=== PATIENT | female | born 1985 | race Hispanic/Latino ===

== ENCOUNTER 2018-06-09 12:16 | Emergency (ER) | payer BC ==
[2018-06-09 12:21] VITALS: BMI 20.9
[2018-06-09 12:27] VITALS: O2SAT 100
--- NOTE | 2018-06-09 12:31 | ED PDOC ---
Arrival/HPI - General Chief Complaint: Trauma Time Seen by Provider: 06/09/18 12:27 Historian: Patient - History of Present Illness Narrative History of Present Illness (Text): 06/09/18 12:40 32 year old female whose PMH includes, asthma and anxiety, who presents to the emergency department complaining of injuring her right elbow and right side of hip s/p mechanical fall prior to arrival while working. 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 Patient was able to ambulate and bear weight s/p fall, but is mainly concerned for her right elbow since it is worse with movement. Patient denies head trauma , loss of consciousness, nausea, vomiting, diarrhea, fever, shortness of breath , chest pain, or other bodily injuries. Time/Duration: 1 hour Symptom Onset: Sudden Symptom Course: Unchanged Context: Tripped Past Medical History - Provider Review Nursing Documentation Reviewed: Yes - Infectious Disease Hx of Infectious Diseases: None - Tetanus Immunization Tetanus Immunization: Unknown - Pulmonary Hx Respiratory Disorders: Yes Hx Asthma: Yes - Musculoskeletal/Rheumatological Hx Falls: No - Psychiatric Hx Anxiety: Yes Hx Substance Use: No - Surgical History Hx Tonsillectomy: Yes Other/Comment: sinus sx - Anesthesia Hx Anesthesia: Yes Hx Anesthesia Reactions: No Hx Malignant Hyperthermia: No - Suicidal Assessment Feels Threatened In Home Enviroment: No Family/Social History - Physician Review Nursing Documentation Reviewed: Yes Family/Social History: Unknown Family HX Smoking Status: Never Smoked Hx Alcohol Use: No Hx Substance Use: No Allergies/Home Meds Allergies/Adverse Reactions: Allergies cefaclor Allergy (Verified 06/09/18 12:21) RASH Penicillins Allergy (Verified 06/09/18 12:21) RASH Home Medications: Home Meds Medication Instructions Recorded Confirmed Albuterol HFA [Ventolin HFA 90 1 puff IH QID PRN 06/09/18 06/09/18 mcg/actuation (8 g)] Escitalopram [Lexapro] 1 tab PO HS 06/09/18 06/09/18 Norethindrone-E.estradiol-Iron 1 tab PO DAILY 06/09/18 06/09/18 [Loestrin Fe 1.5-30 Tablet] Review of Systems - Physician Review All systems were reviewed & negative as marked: Yes - Review of Systems Constitutional: absent: Fevers Cardiovascular: absent: Chest Pain Musculoskeletal: Other (right elbow pain and abrasion; right sided hip pain ) Physical Exam - Physical Exam Narrative Physical Exam (Text): 06/09/18 Constitutional: No acute distress. Head: Normocephalic. Atraumatic. Eyes: PERRL. ENT: Moist mucous membranes. Neck: Supple. No midline tenderness Cardiovascular: Regular rate. Chest: No tenderness. Respiratory: Clear to auscultation bilaterally. GI: Soft. Nontender. Nondistended. Back: No CVA tenderness. No midline tenderness. No paraspinal tenderness. Musculoskeletal: (+) FROM x4 excluding right elbow. (+) abrasion to the olecranon. (+) tenderness to the ulnar aspect of elbow. No hip tenderness. FROM of R hip. Skin: As above. Neurologic: Alert, no focal deficit. Vital Signs Reviewed: Yes Vital Signs Temp Pulse Resp BP Pulse Ox 06/09/18 14:44 98.3 F 06/09/18 14:41 74 17 135/80 100 06/09/18 12:26 98.2 F 78 18 141/83 100 Temperature: Afebrile Blood Pressure: Normal Pulse: Regular Respiratory Rate: Normal Appearance: Positive for: Well-Appearing, Non-Toxic, Comfortable Pain Distress: None Mental Status: Positive for: Alert and Oriented X 3 Medical Decision Making ED Course and Treatment: 06/09/18 Impression: 32 year old female with FROM x4 excluding right elbow with abrasion to the olecranon and tenderness on the ulnar aspect of the elbow. Plan: -- Toradol -- Right elbow x-ray -- Reassess and disposition Progress Notes: 06/09/18 14:20 Right Elbow x-ray: Creator : Anand Pardo MD FINDINGS: BONES: Normal. No fracture. JOINTS: Normal. No osteoarthritis. SOFT TISSUES: Focal soft tissue swelling adjacent to the olecranon. JOINT EFFUSION: None. OTHER FINDINGS: None. IMPRESSION: Soft tissue swelling without acute articular or osseous abnormality. Patient moves elbow much more freely after pain medication. Discharged home, instructed to f/u with Ortho for persistent pain. - RAD Interpretation Radiology Orders: 06/09/18 12:38 ELBOW RIGHT 3 VIEWS ROUTINE [RAD] Stat Glass Maker: Radiologist - Medication Orders Current Medication Orders: Discontinued Medications Ketorolac Tromethamine (Toradol) 60 mg IM STAT STA Stop: 06/09/18 12:39 Last Admin: 06/09/18 13:07 Dose: 60 mg MAR Pain Assessment Document 06/09/18 13:07 SF (Rec: 06/09/18 13:07 [id number]) Pain Reassessment Is this a pain reassessment? Yes Sleep Is patient sleeping during reassessment? No Presence of Pain Presence of Pain Yes IM Administration Charges Document 06/09/18 13:07 SF (Rec: 06/09/18 13:07 [facility]) Injection Site MAR Injection Site Right Deltoid Charges for Administration # of IM Administrations 1 - Scribe Statement The provider has reviewed the documentation as recorded by the Luisibe Daja Tovar Provider Scribe Attestation: All medical record entries made by the Scribe were at my direction and personally dictated by me. I have reviewed the chart and agree that the record accurately reflects my personal performance of the history, physical exam, medical decision making, and the department course for this patient. I have also personally directed, reviewed, and agree with the discharge instructions and disposition. Disposition/Present on Arrival - Present on Arrival Any Indicators Present on Arrival: No History of DVT/PE: No History of Uncontrolled Diabetes: No Urinary Catheter: No History of Decub. Ulcer: No History Surgical Site Infection Following: None - Disposition Have Diagnosis and Disposition been Completed?: Yes Diagnosis: Elbow pain Disposition: HOME/ ROUTINE Disposition Time: 14:29 Patient Plan: Discharge Condition: STABLE Discharge Instructions (ExitCare): Elbow Sprain (DC) Additional Instructions: FINDINGS: BONES: Normal. No fracture. JOINTS: Normal. No osteoarthritis. SOFT TISSUES: Focal soft tissue swelling adjacent to the olecranon. JOINT EFFUSION: None. OTHER FINDINGS: None. IMPRESSION: Soft tissue swelling without acute articular or osseous abnormality. Prescriptions: Ibuprofen [Motrin] 1 tab PO Q6 #30 tab Referrals: Cristian Guerra DO [Staff Provider] - Follow up with primary Forms: [employer] (Lithuanian), WORK NOTE
--- NOTE | 2018-06-09 14:24 | RAD ---
Date of service: 06/09/2018 PROCEDURE: Radiographs of the right elbow. HISTORY: fall, elbow pain COMPARISON: No prior. FINDINGS: BONES: Normal. No fracture. JOINTS: Normal. No osteoarthritis. SOFT TISSUES: Focal soft tissue swelling adjacent to the olecranon. JOINT EFFUSION: None. OTHER FINDINGS: None. IMPRESSION: Soft tissue swelling without acute articular or osseous abnormality.
[2018-06-09 14:44] VITALS: BP 135/80; PULSE 74; RESP 17
[2018-06-09 14:45] VITALS: TEMP 98.3
== END 2018-06-09 14:44 | disposition home or self-care (01) ==
LOC: ED 12:16
DX: M25.521 Pain in right elbow (principal)
CPT/HCPCS: 73080; 96372; 99285; J1885